=== PATIENT | female | born 2000 | race Caucasian/White ===

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

== ENCOUNTER 2019-12-16 19:57 | Emergency (ER) | payer OTHER ==
[2019-12-16 20:17] LABS: RAPID STREP SCREEN Negative (Negative)
--- NOTE | 2019-12-16 20:40 | ED Physician Documentation ---
History of Present Illness - Stated complaint Stated Complaint: THROAT PAIN - Chief complaint Chief Complaint: Heent - History obtained from History obtained from: Patient, Family - History of Present Illness Timing: Today (She is had about a week of sore throat and noticed a painful lump on the right tonsil today. No fevers.) Review of Systems Constitutional: denies: Fever, Chills Nose: denies: Rhinorrhea / runny nose Throat: reports: Sore throat PD PAST MEDICAL HISTORY - Past Medical History Cardiovascular: None Respiratory: None Endocrine/Autoimmune: None - Past Surgical History Past Surgical History: No - Present Medications Home Medications: Ambulatory Orders Medication Instructions Recorded Confirmed No Known Home Medications 12/10/13 12/10/13 - Allergies Allergies/Adverse Reactions: Allergies Allergy/AdvReac Type Severity Reaction Status Date / Time No Known Drug Allergies Allergy Verified 12/16/19 20:00 - Social History Does the pt smoke?: No Smoking Status: Never smoker Does the pt drink ETOH?: No Does the pt have substance abuse?: No - Immunizations Immunizations are current?: Yes - POLST Patient has POLST: No PD ED PE NORMAL - Vitals Vital signs reviewed: Yes - General General: Alert and oriented X 3, No acute distress - HEENT HEENT: Other (She does have a large tonsillar crypt or stone on the right which was removed using syringe irrigation. She tolerated this well. Otherwise no visible abnormalities.) - Neck Neck: Supple, no meningeal sign, No bony TTP - Neuro Neuro: Alert and oriented X 3, Normal speech Results - Vitals Vitals: Vital Signs - 24 hr 12/16/19 20:01 Temperature 36.8 C Heart Rate 95 Respiratory 16 Rate Blood Pressure 129/78 O2 Saturation 98 Oxygen O2 Source Room air - Labs Labs: Laboratory Tests 12/16/19 20:06 Group A Strep Rapid Negative Departure - Departure Disposition: Home, Self Care Clinical Impression: Symptomatic tonsillar crypt Condition: Good Record reviewed to determine appropriate education?: Yes Instructions: Sore Throat, Tonsillectomy Comments: If you continue to have problems, follow-up with an ear nose and throat surgeon. The closest is in [place]. The phone number is [phone]. Return for new or worsening symptoms. We will culture the throat and if a pathogen is identified we will call you
[2019-12-16 20:58] VITALS: BP 118/72
== END 2019-12-16 20:58 | disposition home or self-care (01) ==
LOC: ED 19:57
DX: J35.8 Other chronic diseases of tonsils and adenoids (principal)
CPT/HCPCS: 87070; 87430; 99283

== ENCOUNTER 2020-08-11 21:27 | Emergency (ER) | payer OTHER ==
[2020-08-11] MEDS ORDERED: IBUPROFEN 600 MG TABLET PO STA (21:40)
[2020-08-11] MEDS ORDERED: ACETAMINOPHEN 325 MG TABLET PO STA (21:41)
[2020-08-11] MEDS ORDERED: LIDOCAINE MPF 1%-EPI 1:200000 10 ML VIAL SUBQ STA (21:41)
[2020-08-11] MEDS ORDERED: AMOX/CLAV 875 MG/125 MG TABLET PO STA (21:41)
--- NOTE | 2020-08-11 21:42 | ED Physician Documentation ---
PD HPI UPPER EXT INJURY - Stated complaint Stated Complaint: DOG BITE LT HAND - History obtained from History obtained from: Patient - History of Present Illness Location: Left, Hand Type of injury: Puncture wound (she was playing with her mother's dog and it bit her in the hand. Pain in the hand with movement and small laceration dorsum of the hand.) Where injury occurred: Home (her mother's house) Timing - onset: Today (shortly [place] [employer]) Timing - details: Abrupt onset, Still present Worsened by: Moving, Palpating Associated symptoms: No: Weakness, Numbness, Tingling Similar symptoms before: Has not had sx before Review of Systems Constitutional: denies: Fever, Chills Nose: denies: Rhinorrhea / runny nose, Congestion Throat: denies: Sore throat Respiratory: denies: Cough Neurologic: denies: Focal weakness, Numbness PD PAST MEDICAL HISTORY - Past Medical History Cardiovascular: None Respiratory: None Endocrine/Autoimmune: None - Past Surgical History Past Surgical History: No - Present Medications Home Medications: Ambulatory Orders Medication Instructions Recorded Confirmed Amox/Clav 875/125 [Augmentin] 1 each PO Q12H 5 Days #10 tab 08/11/20 - Allergies Allergies/Adverse Reactions: Allergies Allergy/AdvReac Type Severity Reaction Status Date / Time fluoxetine Allergy Hives Verified 08/11/20 21:47 - Social History Does the pt smoke?: No Smoking Status: Never smoker Does the pt drink ETOH?: No Does the pt have substance abuse?: No - Immunizations Immunizations are current?: Yes - POLST Patient has POLST: No PD ED PE NORMAL - Vitals Vital signs reviewed: Yes - General General: Alert and oriented X 3, No acute distress, Well developed/nourished - Derm Derm: Normal color, Warm and dry - Extremities Extremities: Other (left hand with small lac dorsal aspect over 4th MC area. also small puncture just proximal to that. Exposes fatty tissue. No FB. ) - Neuro Neuro: Alert and oriented X 3, No motor deficit, No sensory deficit, Normal speech Results - Vitals Vitals: Vital Signs - 24 hr 08/11/20 08/11/20 21:30 22:50 Temperature 37.2 C 36.5 C Heart Rate 75 70 Respiratory 16 20 Rate Blood Pressure 127/98 H 124/71 O2 Saturation 98 100 Oxygen O2 Source Room air - Rads (name of study) left hand Radiology: Prelim report reviewed (no fractures), See rad report Procedures - Laceration (location) dorsum left hand Length in cm: 1 Wound type: Linear, Into subcut fat, Clean Neurovascular status: Sensory intact, Motor intact Tendon involvement: Tendon intact Anesthesia: Lidocaine 1% with epi Wound preparation: Irrigated copiously NS, Wound explored, To the base. No: FB identified Skin layer closure: Nylon, Interrupted, Size #-0 - enter number (4), Sutures - enter # (5) Other: Patient tolerated well, No complications, Neurovascular intact, Dressing applied, Tetanus UTD PD MEDICAL DECISION MAKING - ED course Complexity details: considered differential, d/w patient Departure - Departure Disposition: 01 Home, Self Care Clinical Impression: Dog bite of left hand without complication Qualifiers: Encounter type: initial encounter Qualified Code(s): S61.452A - Open bite of left hand, initial encounter; W54.0XXA - Bitten by dog, initial encounter Hand contusion Qualifiers: Encounter type: initial encounter Laterality: left Qualified Code(s): S60.222A - Contusion of left hand, initial encounter Condition: Stable Record reviewed to determine appropriate education?: Yes Instructions: ED Bite Dog Prescriptions: Amox/Clav 875/125 [Augmentin] 1 each PO Q12H 5 Days #10 tab Comments: It is okay to wash and shower. Clean off the wound twice a day with soap and water, or peroxide and water. Apply some antibiotic ointment to it to keep it moist. Also to watch for signs of infection such as purulence, redness or increasing pain. Return to your primary care or the ER at the specified time for suture removal. Suture removal 7-day days. Augmentin twice daily for 5 days to reduce the chance of infection. Ibuprofen or naproxen 2-3 times a day and add Tylenol if needed for pains. Your x-ray appears normal without any fractures. Your muscles and soft tissue will be sore so use as tolerated. Discharge Date/Time: 08/11/20 22:52
[2020-08-11] MEDS ORDERED: LIDOCAINE MPF 2%-EPI 1:200000 20 ML VIAL ONE (22:07)
[2020-08-11 22:50] VITALS: BP 124/71
--- NOTE | 2020-08-12 07:46 | XRAY Report ---
PROCEDURE: Hand 3 View LT INDICATIONS: dog bite left hand TECHNIQUE: 3 views of the hand(s) acquired. COMPARISON: None FINDINGS: Bones: No acute fractures or dislocations. No suspicious bony lesions. Soft tissues: No suspicious soft tissue calcifications. There is soft tissue swelling of the left h and with soft tissue gas noted over the ulnar, dorsal aspect of the proximal left hand and wrist. IMPRESSION: No acute fracture or dislocation. Mild soft tissue gas noted in the ulnar and dorsal aspect of the wr ist likely related to penetrating injury given history of dog bite. No radiopaque soft tissue foreign body seen. No significant discrepancy with initial interpretation by overnight radiologist. Reviewed by: Azar Edmonds MD on 08/12/2020 7:45 AM PST Approved by: Azar Edmonds MD on 08/12/2020 7:45 AM PST Station ID: [id number]
== END 2020-08-11 22:52 | disposition home or self-care (01) ==
LOC: ED 21:27
DX: S61.452A Open bite of left hand, initial encounter (principal); S60.222A Contusion of left hand, initial encounter; W54.0XXA Bitten by dog, initial encounter; Y93.89 Activity, other specified; Y92.009 Unspecified place in unspecified non-institutional (private) residence as the place of occurrence of the external cause
CPT/HCPCS: 12001; 73130; 99283; A9270; J3490

== ENCOUNTER 2020-08-19 20:43 | Emergency (ER) | payer OTHER ==
[2020-08-19 20:51] VITALS: BP 126/76
--- NOTE | 2020-08-19 20:51 | ED Physician Documentation ---
History of Present Illness - Stated complaint Stated Complaint: SUTURE REMOVAL - Additonal information Additional information: 20-year-old female here for suture removal on her left wrist after a dog bite about 1 week ago. She did have a puncture wound as well as about 2 cm lacer ation on the wrist. She is completing her course of Augmentin. Denies pain fevers milky drainage or erythema. Review of Systems Constitutional: reports: Reviewed and negative Eyes: reports: Reviewed and negative Throat: reports: Reviewed and negative Cardiac: reports: Reviewed and negative Respiratory: reports: Reviewed and negative GI: reports: Reviewed and negative : reports: Reviewed and negative Skin: reports: Laceration (s) (left wrist) PD PAST MEDICAL HISTORY - Past Medical History Cardiovascular: None Respiratory: None Endocrine/Autoimmune: None - Past Surgical History Past Surgical History: No - Present Medications Home Medications: Ambulatory Orders Medication Instructions Recorded Confirmed Amox/Clav 875/125 [Augmentin] 1 each PO Q12H 5 Days #10 tab 08/11/20 - Allergies Allergies/Adverse Reactions: Allergies Allergy/AdvReac Type Severity Reaction Status Date / Time fluoxetine Allergy Hives Verified 08/11/20 21:47 - Social History Does the pt smoke?: No Smoking Status: Never smoker Does the pt drink ETOH?: No Does the pt have substance abuse?: No - Immunizations Immunizations are current?: Yes - POLST Patient has POLST: No PD ED PE EXPANDED - Extremities Extremities: Left wrist (2 cm laceration dorsum of the left wrist. Well approximated without surrounding erythema or drainage. [address] in this wound. There is a puncture wound superior to this with [address] also well-healed.) Results - Vitals Vitals: Oxygen O2 Source Room air PD MEDICAL DECISION MAKING - ED course Complexity details: d/w patient ED course: 20-year-old female presents emergency department to have the sutures removed from her left wrist after a dog bite injury about 1 week ago. The wound/laceration has healed well. All 6 sutures were removed intact. Routine wound care including antibiotics were discussed. Unfortunately this does go through a new tattoo and she will likely have some scarring which was discussed with the patient. Departure - Departure Disposition: 01 Home, Self Care Clinical Impression: Encounter for removal of sutures Condition: Stable Record reviewed to determine appropriate education?: Yes Comments: Your laceration and puncture wound has healed well. I do recommend that you place antibiotic ointment over the wounds once or twice a day for the next week. Complete your full course of antibiotics. Return to the emergency department if you have milky drainage, increased pain redness surrounding the laceration/puncture wound or any concerns of infection.
[2020-08-19] MEDS ORDERED: BACITRACIN ZINC OINT 1 PACKET TOP STA (20:55)
== END 2020-08-19 21:06 | disposition home or self-care (01) ==
LOC: ED 20:43
DX: S61.512D Laceration without foreign body of left wrist, subsequent encounter (principal); W54.0XXD Bitten by dog, subsequent encounter
CPT/HCPCS: 99281; A9270

== ENCOUNTER 2021-08-20 20:43 | Emergency (ER) | payer OTHER ==
[2021-08-20 21:01] VITALS: BP 131/81
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
[2021-08-20] MEDS ORDERED: ONDANSETRON ODT 4 MG TABLET TL STA (21:25)
--- OUTSIDE RECORDS SUMMARY | 2021-08-20 21:26 | EXTERNAL MEDICAL SUMMARY RPT | Continuity of Care Document ---
:2000 Author Organization [facility] Address [address] [place] [address] Phone Care Team Providers Name Role Phone M.D. Unavailable Unavailable Allergies No information. Encounters No information. Medications date description facility [id number] fluticasone propionate All Problems date description facility 20210617 Never smoker All 20210617 Details of drug misuse behavior All 20210617 Allergic rhinitis, unspecified All 20210617 Allergic rhinitis, cause unspecified A ll 20210617 Allergic rhinitis All 20210617 Alcohol use All Results No information. Vital Signs date measurement value source 20210617 weight_standard 206.2 lb 20210617 weight_metric 93.53 kg 20210617 temperature_standard 98.2 F 20210617 temperature_metric 36.78 C 20210617 respiration_rate 14 /min 20210617 height_standard 69 in 20210617 height_metric 175.26 cm 20210617 heart_rate 70 /min 20210617 BP_systolic 138 mm[Hg] 20210617 BP_diastolic 93 mm[Hg] 20210617 BMI 30.56 kg/m2
--- NOTE | 2021-08-20 22:23 | CT Report ---
PROCEDURE: HEAD WO INDICATIONS: 15 pound meaal object hit head TECHNIQUE: Noncontrast 4.5 mm thick angled axial sections acquired from the foramen magnum to the vertex. For r adiation dose reduction, the following was used: automated exposure control, adjustment of mA and/or kV according to patient size. COMPARISON: None. FINDINGS: Image quality: Excellent. CSF spaces: Basal cisterns are patent. No extra-axial fluid collections. Ventricles are normal in size and shape. Brain: No midline shift. No intracranial masses or hemorrhage. Mcfarland-white matter interface is norm al. Skull and face: Superior right frontal scalp edema is noted. Calvarium and visualized facial bones a re intact, without suspicious lesions. Sinuses: Visualized sinuses and mastoids are clear. IMPRESSION: Right superior frontal scalp edema. No skull fracture. No acute intracranial abnormality . Reviewed by: Robbi Calhoun MD on 08/20/2021 10:22 PM PST Approved by: Robbi Calhoun MD on 08/20/2021 10:22 PM PST Station ID: [id number]
== END 2021-08-20 22:39 | disposition home or self-care (01) ==
LOC: ED 20:43
DX: S06.0X0A Concussion without loss of consciousness, initial encounter (principal); W20.8XXA Other cause of strike by thrown, projected or falling object, initial encounter; Y93.H3 Activity, building and construction; Y92.007 Garden or yard of unspecified non-institutional (private) residence as the place of occurrence of the external cause
CPT/HCPCS: 70450; 99283; 99284; Q0162